=== PATIENT | female | born 1940 | race Caucasian/White ===

== ENCOUNTER 2017-01-22 08:54 | Day surgery (SDC) | payer OTHER, MEDICARE ==
[2017-01-21 11:54] VITALS: BMI 22.3
[2017-01-22 09:43] LABS: ALBUMIN 3.7 g/dl (3.4-5.0); ANION GAP 8 (8-16); BILIRUBIN,TOTAL 0.3 mg/dL (0.2-1.0); CALCIUM 9.1 mg/dL (8.5-10.1); CO2 29 mmol/L (21-32); CREATININE 0.7 mg/dL (0.55-1.02); GLUCOSE,RANDOM 79 mg/dL (74-106); SGOT/AST 25 U/L (15-37); SGPT/ALT 17 U/L (12-78); TOT PROT 6.7 g/dl (6.4-8.2)
[2017-01-22 09:44] LABS: ALK PHOS 50 U/L (45-117)
[2017-01-22] MEDS ORDERED: ACETAMINOPHEN 325 MG TABLET (FP) ONE (10:18)
[2017-01-22] MEDS ORDERED: ACETAMINOPHEN 325 MG TABLET (FP) PO ONE (10:30)
[2017-01-22] MEDS ORDERED: DENOSUMAB 60 MG/ML DISP.SYRIN SQ ONE (10:30)
[2017-01-22 10:37] VITALS: BP 131/66; PULSE 78; TEMP 98.2
== END 2017-01-22 10:47 | disposition home or self-care (01) ==
LOC: JINFUSION 08:54
PROVIDERS: ATTEND Internal Medicine Endocrinology, Diabetes & Metabolism
PROC: 3E013GC Introduction of Other Therapeutic Substance into Subcutaneous Tissue, Percutaneous Approach (ICD-10-PCS; principal; 2017-01-22)
DX: M81.0 Age-related osteoporosis without current pathological fracture (principal)
CPT/HCPCS: 96372; J0897; 36415; 80053

== ENCOUNTER 2017-02-10 08:00 | Inpatient (IN) | payer OTHER, MEDICARE ==
--- NOTE | 2017-02-12 14:41 | HP ---
Satellite [facility] - Chief Complaint Chief Complaint: right knee pain - Past Medical History Allergies/Adverse Reactions: Allergies Allergy/AdvReac Type Severity Reaction Status Date / Time sulfadiazine [Sulfadiazine] Allergy Verified 06/10/13 12:55 - Current Medications Current Medications: Home Medications Medication Instructions Recorded Calcium Carb/Vit D3/Minerals 1 mg PO BID 04/26/13 [Calcium 600 + D Tablet] Diltiazem Cd [Cardizem Cd -] 240 mg PO DAILY #0 cap.cd.24h 06/17/13 Polyethylene Glycol 3350 [Miralax 17 gm PO DAILY #1 bottle 06/17/13 255 gm Btl] Hydroxychloroquine Sulfate 200 mg PO DAILY 01/23/15 Leflunomide [Arava] 10 mg PO DAILY 01/23/15 Cholecalciferol (Vitamin D3) 1,000 units PO DAILY 07/26/15 [Vitamin D] Simvastatin [Zocor -] 20 mg PO HS 07/26/15 Escitalopram Oxalate [Lexapro -] 5 mg PO DAILY 01/21/17 Aspirin [Shelby Chewable] 81 mg PO DAILY 01/22/17 Budesonide/Formeterol Fumarate 1 inh PO BID 01/22/17 [SYMBICORT 160/4.5mcg -] Cetirizine HCl [Zyrtec -] 10 mg PO DAILY 01/22/17 Denosumab [Prolia] 60 mg SQ ASDIR 01/22/17 Ferrous Sulfate 325 mg PO Q2D 01/22/17 Polyethylene Glycol 3350 [Miralax 17 gm PO DAILY 01/22/17 (For Daily Use) -] Satellite Physical Exam - Physical Examination General Appearance: Well Nourished, Well Developed, Alert & Oriented x3 ENT: Clear Lung: Normal air movement Heart: Regular rate & rhythm Extremities: Other (right knee- + swelling, + ttp, decr rom, nvi xrays show severe tricompartmental djd) Neurological: Intact, Alert, Oriented Satellite Impression/Plan - Impression/Plan Impression: right knee djd Operative Procedure: right travon tkr Date to be Performed: 02/17/17
[2017-02-13 13:54] VITALS: BMI 21.9
[2017-02-17] MEDS ORDERED: TRANEXAMIC ACID 1000 MG/10 ML VIAL IVPUSH ONE (06:12)
[2017-02-17] MEDS ORDERED: CEFAZOLIN 1 GM/D5W 50 ML IVPB ONE (06:12)
[2017-02-17] MEDS ORDERED: GABAPENTIN 300 MG CAPSULE (FP) PO ONE (06:12)
[2017-02-17] MEDS ORDERED: GABAPENTIN 300 MG CAPSULE (FP) ONE (06:24)
[2017-02-17] MEDS ORDERED: SODIUM CHLORIDE 0.9% P/F 10 ML VIAL IJ ONE (06:44)
[2017-02-17] MEDS ORDERED: MIDAZOLAM HCL 2 MG/2 ML SINGLE DOSE VIAL ONE (06:44)
[2017-02-17] MEDS ORDERED: ROPIVACAINE HCL 0.5% 30ML VIAL ONE (06:44)
[2017-02-17] MEDS ORDERED: DEXAMETHASONE SOD PHOSPHATE/PF 10 MG/ML SDV ONE (06:44)
[2017-02-17] MEDS ORDERED: PROPOFOL 20 ML ONE ×2 (07:34)
[2017-02-17] MEDS ORDERED: ceFAZolin SODIUM 1 GM VIAL ONE ×2 (07:49→07:50)
[2017-02-17] MEDS ORDERED: VANCOMYCIN 1,000 MG VIAL (RESTRICTED TO ID ONLY) ONE (07:49)
[2017-02-17] MEDS ORDERED: BUPIVACAINE HCL/PF 0.5% (5MG/ML) 10 ML VIAL ONE (08:12)
[2017-02-17] MEDS ORDERED: PHENYLEPHRINE HCL 10 MG/1 ML SINGLE DOSE VIAL ONE (09:01)
[2017-02-17] MEDS ORDERED: ONDANSETRON 4 MG/2 ML VIAL ONE (09:01)
[2017-02-17] MEDS ORDERED: TRANEXAMIC ACID 1000 MG/10 ML VIAL ONE (09:38)
[2017-02-17] MEDS ORDERED: PROMETHAZINE HCL 25 MG/1 ML VIAL IVPUSH PRN (09:44)
[2017-02-17] MEDS ORDERED: ACETAMINOPHEN 1000 MG/100 ML VIAL (NON FORMULARY) IVPB ONE (09:44)
[2017-02-17] MEDS ORDERED: LACTATED RINGERS SOLUTION 1,000 ML IV SCH ×2 (09:45→12:30)
[2017-02-17] MEDS ORDERED: ONDANSETRON 4 MG/2 ML VIAL IVPUSH PRN (10:29)
[2017-02-17] MEDS ORDERED: oxyCODONE HCL 5 MG TABLET PO PRN (10:30)
[2017-02-17] MEDS ORDERED: ROPIVACAINE 0.2% 400ML 400 ML ML NR ONE (10:45)
[2017-02-17] MEDS ORDERED: PATIENT'S OWN MEDICATION (NON-FORMULARY) (Denosumab 60 MG) SQ SCH (12:15)
--- NOTE | 2017-02-17 12:15 | SURG ---
Surgery Driver/Refuse Collector Note Driver/Refuse Collector: Brennon Dial PA-C Date of Service: 02/17/17 Diagnosis: Right knee djd Procedure: WILLY right total knee replacement I was present for the entirety of the operative procedure. For further detail, please refer to operative report. Visit type - Case Type Case Type: Scheduled Admission - New patient This patient is new to me today: Yes Date on this admission: 02/17/17
[2017-02-17] MEDS ORDERED: MAG HYDROX/AL HYDROX/SIMETH 30 ML UNIT-DOSE CUP PO PRN (12:17)
[2017-02-17] MEDS ORDERED: ONDANSETRON 4 MG/2 ML VIAL IVPB PRN (12:38)
[2017-02-17] MEDS: oxyCODONE HCL 5 MG TABLET PO PRN (14:59)
[2017-02-17] MEDS: CEFAZOLIN 1 GM/D5W 50 ML IVPB SCH (17:00)
[2017-02-17] MEDS: ACETAMINOPHEN 325 MG TABLET (FP) PO SCH (17:00)
--- NOTE | 2017-02-17 20:34 | OP ---
DATE OF OPERATION: 02/17/2017 PREOPERATIVE DIAGNOSIS: Degenerative joint disease, right knee. POSTOPERATIVE DIAGNOSIS: Degenerative joint disease, right knee. PROCEDURE: Right total knee replacement with robotic-assisted navigation (MAKOplasty). SURGEON: Taurus Orr MD ENGINEER G[employer] PUMPING STATION: [place]AND[place] Man ANESTHESIA: Spinal and regional. CLOSURE: Triathlon knee system with a 5 femur, 5 tibia, a 13 polyethylene, 32 patella, a short stem on the tibia, number 1 Vicryl to fascia, 0 and 2-0 for subcutaneous, 3-0 Monocryl subcuticular, with skin glue for skin, 3-0 nylon for pin sites. ESTIMATED BLOOD LOSS: Negligible. TOURNIQUET TIME: Approximately 80 minutes. COMPLICATIONS: None. CONDITION: To recovery room in stable condition. DESCRIPTION OF OPERATIVE PROCEDURE: Patient taken to the operating room on February 17, 2017. Regional and spinal anesthesia was administered by the anesthesiologist. IV Kefzol and TXA were administered prophylactically prior to the case. Well-padded pneumatic tourniquet was placed on the right proximal thigh. The right lower extremity was prepped and draped in the usual sterile fashion. A 10- to 12-cm longitudinal midline incision centered over the patella was incised. Hemostasis achieved with Bovie cautery. This was done after the tourniquet was inflated to 275 mmHg. Sufficient flaps were made medially and laterally to perform the procedure. A medial parapatellar arthrotomy was then performed. The patella was inverted and the knee was flexed up to greater than 90 degrees. Subperiosteal dissection was done in the anteromedial proximal tibia until the knee was able to be brought forward. Meniscal remnants were removed. Checkpoints were placed both on the femur and in the tibia through 2 stab incisions in the femur and 2 in the tibia. Two bicortical pins were placed. Two of these pins were fastened to the navigation arrays. The knee was registered with the robot with center of rotation of the hip and multiple points in the femur and in the tibia. Confirmation of adequate registration was confirmed by "popping the bubbles." Osteophytes were then removed. Stressing the knee in extension and flexion at 90 degrees was able to assess the virtual stability of the knee and to fine-tune the position of the components. The robot was then brought in the field and was registered. The robot was used to then osteotomize the femur and the tibia at the appropriate levels, fastening to a number 5 femur and number 5 tibia. The bone was extremely soft. While assessing gaps in both flexion and extension, the central portion of the tibial plateau was compressing down. It was thus decided to use the stem on the tibial component to increase stability. A trial reduction with a 5 femur, 5 tibia, and a 13 polyethylene achieved equal stability in extension and 90 degrees of flexion. The patella was calipered and then osteotomized to appropriate level. A 32 lollipop was used to drill the lug holes. The tibial baseplate was confirmed to be in the appropriate position by using the robot with appropriate external rotation. A trial range of motion revealed good stability throughout with excellent tracking of the patella throughout the range of motion. The trial component was removed. The tibial baseplate was punched, drilled, both to fit the standard baseplate as well as the stem that was fastened to the tibial baseplate. The knee was pulse antibiotic irrigated. The real components were then cemented in using modern generation cement techniques with antibiotic cement and pressurization and extension. After the cement was hardened, the knee was thoroughly inspected to remove all excess cement and removal all fragments. The real polyethylene line was then placed, achieving excellent stability throughout range of motion with excellent tracking of the patella. The knee was again thoroughly irrigated and cleaned and dried. Vancomycin powder was then placed into the knee. The medial parapatellar arthrotomy was then closed using number 1 Vicryl interrupted suture. The knee was taken through a range of motion after the repair and found to have no undue tension on the repair. The subcutaneous was then closed with 0 and 2-0 Vicryl and 3-0 Monocryl subcuticular with skin glue for skin, 3-0 nylon horizontal mattress for the pin sites. Aquacel dressing was applied. Patient was awakened from anesthesia and transferred to the recovery room in stable condition, no complication. Estimated blood loss negligible. Tourniquet time approximately 80 minutes. Postoperative x-ray revealed excellent position of the components. Sly TOLENTINO/[id number]
[2017-02-17] MEDS ORDERED: PT OWN MED DRAWER 7, Y5N ONE (21:55)
[2017-02-17] MEDS ORDERED: VIT D3 PO SCH (22:00)
[2017-02-17] MEDS ORDERED: GABAPENTIN 300 MG CAPSULE (FP) PO SCH (22:00)
[2017-02-17] MEDS ORDERED: ASPIRIN 325 MG TABLET PO SCH (22:00)
[2017-02-17] MEDS ORDERED: PATIENT'S OWN MEDICATION (NON-FORMULARY) (Simvastatin 20 MG) PO SCH (22:00)
[2017-02-17] MEDS ORDERED: CALCIUM CARB PO SCH (22:00)
[2017-02-17] MEDS ORDERED: MINERALS PO SCH (22:00)
[2017-02-17] MEDS ORDERED: [UNRECOGNIZED DRUG - OTHER] PO SCH (22:00)
[2017-02-17] MEDS: CALCIUM 500MG/VIT-D 200 UNITS COMBO TABLET (FP) PO SCH (22:06)
[2017-02-17] MEDS: SENNOSIDES/DOCUSATE COMBO (SENNA PLUS) TABLET (UD) PO SCH (22:06)
[2017-02-17] MEDS: oxyCODONE HCL 10 MG SUSTAINED ACTING TABLET PO SCH (22:06)
[2017-02-17] MEDS: GABAPENTIN 300 MG CAPSULE (FP) PO SCH (22:06)
[2017-02-17] MEDS: ATORVASTATIN CA 10 MG TABLET (FP) PO SCH (22:06)
[2017-02-17] MEDS: BUDESONIDE/FORMETEROL FUMARATE 160/4.5 mcg INHALER IH SCH (22:07)
[2017-02-18] MEDS: CEFAZOLIN 1 GM/D5W 50 ML IVPB SCH
[2017-02-18] MEDS: oxyCODONE HCL 5 MG TABLET PO PRN ×2 (06:00→10:45)
[2017-02-18] MEDS: ACETAMINOPHEN 325 MG TABLET (FP) PO SCH ×4 (06:02→22:00)
[2017-02-18] MEDS: ASPIRIN 325 MG TABLET PO SCH (08:00)
[2017-02-18 09:11] LABS: MCH 30.7 pg (25.7-33.7); MCHC 34.1 g/dl (32.0-36.0); MEAN PLT VOLUME 8.1 fl (7.5-11.1); PLATELET COUNT 179 K/MM3 (134-434); RDW 12.4 % (11.6-15.6); WHITE BLOOD COUNT 8.8 K/mm3 (4.0-10.0)
[2017-02-18 09:19] LABS: CALCIUM 8.8 mg/dl (8.4-10.2); CREATININE 0.5 mg/dl (0.6-1.3)
[2017-02-18] MEDS: SENNOSIDES/DOCUSATE COMBO (SENNA PLUS) TABLET (UD) PO SCH ×2 (10:00→21:29)
[2017-02-18] MEDS: oxyCODONE HCL 10 MG SUSTAINED ACTING TABLET PO SCH ×2 (10:00→21:30)
[2017-02-18] MEDS: PANTOPRAZOLE 40 MG TABLET (FP) PO SCH (10:00)
[2017-02-18] MEDS ORDERED: LEFLUNOMIDE 20 MG PO SCH (10:00)
[2017-02-18] MEDS: LORATADINE 10 MG TABLET PO SCH (10:00)
[2017-02-18] MEDS: BUDESONIDE/FORMETEROL FUMARATE 160/4.5 mcg INHALER IH SCH ×2 (10:00→22:28)
[2017-02-18] MEDS: MULTIVITAMINS (DAILY MVI) TABLET (FP) PO SCH (10:00)
[2017-02-18] MEDS ORDERED: PATIENT'S OWN MEDICATION (NON-FORMULARY) (Cetirizine Hcl 10 MG) PO SCH (10:00)
[2017-02-18] MEDS: LEFLUNOMIDE 10 MG TABLET PO SCH (10:00)
[2017-02-18] MEDS ORDERED: PT OWN MED DRAWER 7, Y5N ONE (10:37)
[2017-02-18] MEDS: HYDROXYCHLOROQUINE SO4 200 MG TABLET (FP) PO SCH (10:38)
[2017-02-18] MEDS: POLYETHYLENE GLYCOL 3350 119 GM BTL PO SCH (10:42)
[2017-02-18] MEDS: GABAPENTIN 300 MG CAPSULE (FP) PO SCH ×2 (10:43→21:30)
[2017-02-18] MEDS: CALCIUM 500MG/VIT-D 200 UNITS COMBO TABLET (FP) PO SCH ×2 (10:43→21:29)
[2017-02-18] MEDS: CHOLECALCIFEROL (VITAMIN D3) 1,000 UNIT TABLET (FP) PO SCH (10:47)
--- NOTE | 2017-02-18 11:51 | PN ---
Progress Note (short form) - Note Progress Note: 77 yo female. POD #1 R total knee. Patient doing well. Pain adequately controlled with peripheral nerve catheter. She has ambulated and participated in therapy. Vitals as noted. Afebrile Catheter site is clean dry and intact. Continue current care.
--- NOTE | 2017-02-18 16:00 | PN ---
Progress Note (short form) - Note Progress Note: Pt seen and examined. She is doing well, min c/o pain, is comfortable. AVSS H/H stable B/L LE NVI Overall doing well Plan DC home tomorrow F/U with Dr Orr in 1 week
[2017-02-18] MEDS: ATORVASTATIN CA 10 MG TABLET (FP) PO SCH (21:32)
[2017-02-19] MEDS: ACETAMINOPHEN 325 MG TABLET (FP) PO SCH ×2 (04:00→12:30)
[2017-02-19] MEDS: ASPIRIN 325 MG TABLET PO SCH (08:57)
[2017-02-19 09:25] LABS: MCH 30.6 pg (25.7-33.7); MCHC 33.8 g/dl (32.0-36.0); MEAN CELL VOLUME 90.4 fl (80-96); MEAN PLT VOLUME 8.4 fl (7.5-11.1); PLATELET COUNT 165 K/MM3 (134-434); RDW 13.3 % (11.6-15.6); WHITE BLOOD COUNT 13.2 K/mm3 (4.0-10.0)
[2017-02-19] MEDS ORDERED: PT OWN MED DRAWER 7, Y5N ONE (09:59)
[2017-02-19] MEDS ORDERED: FERROUS SO4 325 MG TABLET (FP) PO SCH (10:00)
[2017-02-19] MEDS: SENNOSIDES/DOCUSATE COMBO (SENNA PLUS) TABLET (UD) PO SCH (10:31)
[2017-02-19] MEDS: LORATADINE 10 MG TABLET PO SCH (10:32)
[2017-02-19] MEDS: MULTIVITAMINS (DAILY MVI) TABLET (FP) PO SCH (10:32)
[2017-02-19] MEDS: CHOLECALCIFEROL (VITAMIN D3) 1,000 UNIT TABLET (FP) PO SCH (10:33)
[2017-02-19] MEDS: GABAPENTIN 300 MG CAPSULE (FP) PO SCH (10:33)
[2017-02-19] MEDS: PANTOPRAZOLE 40 MG TABLET (FP) PO SCH (10:33)
[2017-02-19] MEDS: oxyCODONE HCL 10 MG SUSTAINED ACTING TABLET PO SCH (10:34)
[2017-02-19] MEDS: POLYETHYLENE GLYCOL 3350 119 GM BTL PO SCH (10:34)
[2017-02-19] MEDS: LEFLUNOMIDE 10 MG TABLET PO SCH (10:34)
[2017-02-19] MEDS: CALCIUM 500MG/VIT-D 200 UNITS COMBO TABLET (FP) PO SCH (10:35)
[2017-02-19] MEDS: BUDESONIDE/FORMETEROL FUMARATE 160/4.5 mcg INHALER IH SCH (10:35)
[2017-02-19] MEDS: HYDROXYCHLOROQUINE SO4 200 MG TABLET (FP) PO SCH (10:35)
--- NOTE | 2017-02-19 13:30 | PN ---
Progress Note (short form) - Note Progress Note: 77F POD2 s/p Right total knee replacement under spinal anesthetic with an adductor canal catheter for post operative pain control. Adductor canal catheter removed tip intact, site clean. Sensory and motor function intact in both lower extremities. AVSS.
[2017-02-19 14:28] VITALS: BP 148/67; PULSE 101; TEMP 98.9
--- NOTE | 2017-02-19 14:45 | PATH ---
Surgical Pathology Report Patient Name: YESI PACHECO Med. Rec. #: [id number] /Age/Gender: 1940 (Age: 77) / F Account: [id number] Location: [facility] MED-SURG Taken: 02/17/2017 Received: 02/17/2017 Reported: 02/19/2017 Physicians: Taurus Orr M.D. Specimen(s) Received BONE RIGHT KNEE Clinical History Right knee osteoarthritis Final Diagnosis BONE AND SOFT TISSUE, RIGHT KNEE, REPLACEMENT: DEGENERATIVE JOINT DISEASE. Electronically Signed Shaw Alvarez M.D. Gross Description Received in formalin labeled "bone right knee," is 11.0 x 8.5 x 2.3 cm aggregate of multiple irregular portions of bone and soft tissue. The tibial plateau measures 7.5 x 4.8 x 1.4 cm. There is a 2.3 cm in greatest dimension area of eburnation present. The remaining articular surfaces are glynn-yellow and diffusely granular. The underlying trabecular bone is yellow and hard. Project Eng sections are submitted in one cassette, following decalcification. 02/18/2017 [facility]02/18/2017
[2017-02-19] MEDS ORDERED: PATIENT'S OWN MEDICATION (NON-FORMULARY) (Denosumab 60 MG) SQ SCH (15:00)
== END 2017-02-19 15:25 | disposition home or self-care (01) | DRG 470 ==
LOC: FM/S 02-17 05:47 → UNDOADMIN 02-17 05:47 → FM/S 02-17 11:48 → UNDOADMIN 02-19 05:47 → UNDODISIN 02-19 14:47 → FM/S 02-19 14:58
PROVIDERS: ADMIT Orthopaedic Surgery; ATTEND Orthopaedic Surgery
PROC: 8E0Y0CZ Robotic Assisted Procedure of Lower Extremity, Open Approach (ICD-10-PCS; 2017-02-17)
PROC: 0SRC0J9 Replacement of Right Knee Joint with Synthetic Substitute, Cemented, Open Approach (ICD-10-PCS; principal; 2017-02-17 08:42)
DX: M17.11 Unilateral primary osteoarthritis, right knee (principal); I10 Essential (primary) hypertension; E78.5 Hyperlipidemia, unspecified; J44.9 Chronic obstructive pulmonary disease, unspecified; F32.9 Major depressive disorder, single episode, unspecified
CPT/HCPCS: 36415; 73560-TC-RT; 80048; 85027; 88305-TC; 88311-TC; 94010; 94760; 97116-GP; 97162-PG

== ENCOUNTER 2017-08-19 10:32 | Day surgery (SDC) | payer OTHER, MEDICARE ==
[2017-08-19] MEDS ORDERED: DENOSUMAB 60 MG/ML DISP.SYRIN SQ ONE (11:30)
[2017-08-19 12:11] VITALS: BP 151/71; PULSE 72; TEMP 98.2
== END 2017-08-19 11:55 | disposition home or self-care (01) ==
LOC: JASU-ENDO 10:32
PROVIDERS: ATTEND Internal Medicine Endocrinology, Diabetes & Metabolism
PROC: 3E013GC Introduction of Other Therapeutic Substance into Subcutaneous Tissue, Percutaneous Approach (ICD-10-PCS; principal; 2017-08-19)
DX: M81.0 Age-related osteoporosis without current pathological fracture (principal)
CPT/HCPCS: 96372; J0897